=== PATIENT | female | born 1945 | race Caucasian/White ===

== ENCOUNTER 2018-09-07 16:07 | Inpatient (IN) ==
[2018-09-07] MEDS ORDERED: Acetaminophen 325 MG Tablet PO PRN (20:42)
[2018-09-07] MEDS ORDERED: Aluminum/Magnesium/Simethacone Susp 30 ML UDC PO PRN (20:42)
[2018-09-07] MEDS: Senna/Docusate Sodium 8.6/50 MG Tablet PO SCH (23:14)
--- NOTE | 2018-09-08 07:35 | P.PNPSY ---
Subjective Chief Complaint: suicidal ideation Remarks: September 08, 2018 Subjective: Patient well-known to me, having interviewed the patient on 3 prior occasions in consultation. Patient has refused cardiac workup and signed a DNR with the expressed wish that she not have intrusive treatment. Patient shows no evidence of sad affect and easily smiles and laughs about the idea of being transferred to palliative care or to hospice. It is reported that the family intends for the patient to stay at [facility] and are unwilling to accept the patient home. The patient feels she would be a burden to the family has no value since the of her friend. The patient's current treatment unlikely to assist in helping her move through the grieving process and except her value beyond taking care of someone else. It is my hope that the patient could attend group therapy for persons who have unresolved grief due to the loss of the left one. I have proposed to administration that such her group be started in the hospital for the benefit of patients who are unable to be released because of their suicidal intent. Mental Status Examination Appearance: Appropriate Consciousness: Alert Orientation: x4 Speech: Unremarkable Language: Adequate Fund of Knowledge: Adequate Attention and Concentration: Adequate Memory: Unremarkable Mood: Appropriate Affect: Labile Thought Process & Associations: Intact Thought Content: Appropriate Hallucination Type: None Suicidal Ideation: Yes Suicidal Plan: Yes Suicidal Intention: Yes Assessment and Plan - Plan Plan: Estimated LOS: [] days September 08, 2018 Continue the present medications and when possible arrange for group therapy for grief resolution. Justification for Continued Inpatient Stay: September 08, 2017 Patient continues to threaten suicide if released. Family wants patient to remain in the hospital and do not feel they can provide safe environment outside the hospital. They are also said to be unwilling for the patient to be transferred to an [facility].
[2018-09-08] MEDS: Senna/Docusate Sodium 8.6/50 MG Tablet PO SCH ×2 (08:13→20:13)
--- NOTE | 2018-09-08 12:23 | P.HPPSY ---
Provisional Diagnosis Admission Date: September 07, 2018 19:55 [place] I.: Major depressive disorder Competence Certification of Person's Competence To Provide Express and Informed Consent I have personally examined Tammy Betancourt, a person being served at [facility] onSeptember 08, 2018 1220. Express and informed consent means consent voluntarily given in writing, by a competent person, after sufficient explanation and disclosure of the subject matter involved to enable the person to make a knowing and willful decision without any element of force, fraud, deceit, duress, or other form of constraint or coercion. This person is 18 years of age or older, is not now known to be incompetent to consent to treatment with a guardian advocate, and does not have a health care surrogate or proxy currently making medical treatment decisions. I have found this person to be one of the following: [] Competent to provide express and informed consent, as defined above, for voluntary admission to this facility and is competent to provide express and informed consent for treatment. He/she has the consistent capacity to make well reasoned, willful, and knowing decisions concerning his or her medical or mental health treatment. The person fully and consistently understands the purpose of the admission for examination/placement and is fully capable of personally exercising all rights assured under [place] [] Incompetent to provide express and informed consent to voluntary admission, and this is incompetent to provide express and informed consent to treatment. The person must be transferred to involuntary status and a petition for a guardian advocate filed with the Circuit Court. [x] Refusing to provide express and informed consent to voluntary admission but is competent to provide express and informed consent for treatment. The person must be discharged or transferred to involuntary status. Form shall be completed within 24 hours of a person's arrival at the receiving facility and filed in the clinical record of each person: 1. Admitted on a voluntary basis 2. Permitted to provide express and informed consent to his/her own treatment 3. Allowed to transfer from involuntary to voluntary status 4. Prior to permitting a person to consent to his or her own treatment after having been previously found incompetent to consent to treatment. History of Present Illness Capacity: Has capacity History of Present Illness: 08/29/2018 This is a request for a psychiatric consult. Documentation was reviewed, case was discussed with nursing and patient was evaluated. Patient is a 73-year-old female with a history of depressive disorder. She is here after an intentional suicide overdose. Patient admits to her suicide attempt and describes various stressors including not having a home and feeling like she is a financial burden. She has been feeling this way over the past 4 months and decided to plan her attempt before admission. She wrote a note but says that the note was found to soon by her daughter. Patient continues to have suicidal ideation with intent of hurting herself but does not have any plan of doing so. I spoke with the one-to-one she remains closely monitored here. Her mood is depressed her affect is blunted. She is feeling hopeless and helpless. No psychosis elicited. Patient overdosed however per record she had access to a gun.She states that around 6:54 PM on 08/28 she ingested about 20 tablets of Tylenol 650 mg (13 gram) as well as about 3 doses of codeine cough syrup. She injected "about 3 to 4 times her standard dose" of Tresiba ( time to peak 9 hours, half life elimination 25 hours). Tylenol level at 3-4 hours was 207. She was started on Mucomyst in the emergency department. Her glucose is 341. Urine drug screen is positive for opioids. Salicylate and serum EtOH are negative. She states she still feels suicidal. Past psych: Patient denies outpatient psychiatric history. Says that she had 1 other overdose in her life at age 18. He describes a history of multiple depressive episodes and has tried various antidepressants with little efficacy. The last one that she remembers is Lexapro but she does not know when she took it. No history of cutting. Past medical: CHF, COPD, diabetes mellitus, GERD Past Famhx: Denies Past Social: Patient has 3 kids and is . 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 She denies alcohol or drug use. 09/03/2028 Family medicine notes noted and attending nurse and I discussed the discharge planning. I have asked that the attending physician call me for conferencing the patient prior to making any further decisions regarding the psychiatric follow-up. If patient is to be admitted to hospice I believe she would be safe from further suicidal attempts. Her presentation of her suicidal preoccupation has now changed to her stating that she does not have a gun and she has never told anyone she did. There is very clear indication on repeated notes that the patient has indicated she has gone. This seems to be a manifestation of the patient's being angry with her world and unhappy with the circumstances she finds herself and now where she feels that she is useless now that her friend is no longer alive.There is every indication that the patient is angry and that this is based on circumstances rather than actual clinical depression. 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 There is no likely of inpatient psychiatric follow-up being least restrictive or even the most effective means for treatment. It is therefore recommended that the patient a transfer to hospice as has been planned. Once this has been arranged consult for lifting the [place] act will be done.If the patient is still in the hospital on Thursday Dr. Levin will see the patient and give his opinion as to the best disposition, if he does not concur with the plan as it is now recommended. 09/07/2017 Patient seen today for psychiatric reevaluation. Notes from Dr. Snell and Dr. Gomez reviewed. Patient is found calm, superficially cooperative, very sarcastic. Patient reports that she is not happy with failing her plan. She says that she just need more time to figure out how to commit suicide with a better metabolic. Patient says that she has no recent to live for. She reports to be very pessimistic, very hopeless, helpless, and having continued suicidal thinking. The patient is logical, she is coherent, she is relevant. She is fully oriented x3. I spoke with her about starting medication for depression, she agrees with it. - Inpatient Certification I certify that the inpatient services were ordered in accordance with Medicare regulations governing the order. This includes certification that hospital inpatient services are reasonable and necessary and in the case of services not specified as inpatient-only under 42 CFR 419.22(n), that they are appropriately provided as inpatient services in accordance to with the 2-midnight benchmark under 43 CFR 412.3(e) I certify that inpatient psychiatric hospital services are medically necessary. Evaluation and treatment and/or diagnostic testing are expected to improve the patient's condition. The patient needs on a daily basis, active treatment furnished directly by or requiring the supervision of inpatient psychiatric facility personnel. Review of Systems All other systems reviewed negative except as stated in HPI Psychiatric: Reports depression, Reports thoughts of hurting/killing yourself PMFSH - History History Provided By: Patient, Medical Record - Medical History Medical History: Medical History (Last Updated 09/01/18 @ 17:15 by Sue Shin APRN) CAD (coronary artery disease) COPD (chronic obstructive pulmonary disease) Carpal tunnel syndrome on both sides Depression Diabetes Hypertension On home oxygen therapy - Surgical History Surgical History: Surgical History (Last Reviewed 08/29/18 @ 14:31 by Rickey Gomez DO) History of carpal tunnel release of both wrists Hx of CABG Hx of appendectomy Hx of tubal ligation S/P trigger finger release - Family History Family History: Family History (Last Updated 08/29/18 @ 09:24 by Genet Marrero MD) Father Myocardial infarction acute Mother Diabetes - Tobacco History Second Hand Smoke Exposure: Yes Tobacco Use In Past 30 Days: Yes Smoking Status: Current every day smoker Tobacco Type: Cigarettes Packs Per Day: 1 - Alcohol History How Often Do You Have a Drink Containing Alcohol: Never - Substance Use History Substance History: No History of Abuse, Unable to Obtain - Immunization History Tetanus Immunization: Unable to Assess Hx Influenza Vaccine This Season: Yes Medications and Allergies Active Medications: Active Medications Al Hydrox/Mg Hydrox/Simethicone (Mag-Al Plus Susp Liq) 30 ml PO Q6H PRN PRN Reason: DYSPEPSIA Al Hydroxide/Mg Hydroxide (Milk Of Magnesia Liq) 30 ml PO Q12H PRN PRN Reason: Mild Constipation Diphenhydramine HCl (Benadryl) 50 mg PO Q6H PRN PRN Reason: For mild anxiety and/or EPS Diphenhydramine HCl (Benadryl Inj) 50 mg IM Q6H PRN PRN Reason: For mild anxiety and/or EPS Hydroxyzine HCl (Atarax) 50 mg PO Q6H PRN PRN Reason: ANXIETY Nicotine (Habitrol 21 Mg Patch.24 Hr) 1 patch T-DERMAL DAILY [facility] Last Admin: 09/08/18 08:13 Dose: Not Given Patch Removal (Remove Old Patch) 1 each T-DERMAL HS [facility] Senna/Docusate Sodium (Leda-Colace) 1 tab PO BID [facility] Last Admin: 09/08/18 08:13 Dose: Not Given Allergies Allergy/AdvReac Type Severity Reaction Status Date / Time No Known Allergies Uncoded 06/28/09 06:13 Home Medications Medication Instructions Recorded Confirmed Type atorvastatin 40 mg PO DAILY 08/29/18 08/29/18 History carvedilol 25 mg PO BID 08/29/18 08/29/18 History clopidogrel [Plavix] 75 mg PO DAILY 08/29/18 08/29/18 History diltiazem HCl 90 mg PO Q12H 08/29/18 08/29/18 History ergocalciferol (vitamin D2) 50,000 unit PO QWEEK 08/29/18 08/29/18 History [Drisdol] escitalopram oxalate [Lexapro] 10 mg PO DAILY 08/29/18 08/29/18 History fluticasone-salmeterol [Advair 1 puff INHALATION BID 08/29/18 08/29/18 History Diskus] furosemide 40 mg PO DAILY 08/29/18 08/29/18 History insulin glargine [Lantus Solostar 20 unit SUBCUT DAILY 08/29/18 08/29/18 History U-100 Insulin] insulin lispro [Humalog U-100 See Label Instructions .ROUTE 08/29/18 08/29/18 History Insulin] .COMPLEX liraglutide [Victoza 2-Max] 0.6 mg SUBCUT DAILY 08/29/18 08/29/18 History montelukast [Singulair] 10 mg PO QPM 08/29/18 08/29/18 History prednisone [Deltasone] 20 mg PO BID 08/29/18 08/29/18 History rabeprazole 20 mg PO DAILY 08/29/18 08/29/18 History Results - Labs Labs: Laboratory Results - last 24 hr 09/08/18 09/08/18 05:58 11:22 POC Glucose 176 H 240 H Exam Vital signs: Vital Signs 09/07/18 19:35 09/08/18 05:27 Temperature 98.1 F 98.1 F Pulse Rate 65 66 Respiratory Rate 18 18 Blood Pressure 141/65 H 121/56 L Pulse Oximetry 93 L 93 L Intake & Output 09/07/18 09/08/18 09/08/18 18:59 06:59 18:59 Intake Total 480 / 480 Balance 480 / 480 Weight 85.6 kg Intake: Oral 480 / 480 Other: Date of Last Bowel Movement 09/06/18 Weight On Admission 85.6 kg Narrative: No tremors, no EPS, no psychomotor agitation or retardation, no catatonia, no gait disturbance - Constitutional no acute distress, mild distress - Routine HEENT Exam Head: Present: normocephalic, atraumatic Eye: Present: EOMI, PERRL ENT: Present: mucous membranes moist Mental Status Examination Appearance: Appropriate Consciousness: Alert Orientation: x4 Speech: Unremarkable Language: Adequate Fund of Knowledge: Adequate Attention and Concentration: Adequate Memory: Unremarkable Mood: Appropriate Affect: Labile Thought Process & Associations: Intact Thought Content: Appropriate Hallucination Type: None Suicidal Ideation: Yes Suicidal Plan: Yes Suicidal Intention: Yes Assessment and Plan - Assessment (1) Major depressive disorder, recurrent severe without psychotic features Code(s): F33.2 - Major depressive disorder, recurrent severe without psychotic features Status: Acute - Plan Plan: On psychiatric reevaluation today the patient continues to be actively suicidal , with clear symptoms of depression. Patient needs psychiatric admission for stabilization. I will start Effexor 25 mg daily for depression. Transfer to [facility]. I have discussed with Dr. Andujar the recommendations and she agrees with the plan. bin worker intervention for psychosocial assessment, individual and group therapies, collateral information and to coordinate safe discharge. Justification for Continued Inpatient Stay: Continue admission in psychiatry
--- NOTE | 2018-09-08 14:09 | P.CON ---
History of Present Illness Service: [facility] Consult date: 09/08/18 Requesting Physician: Gio Marte Reason for Consult: Medical Management Primary Care Provider: UNKNOWN Chief Complaint: depression History of Present Illness: 73-year-old female with history of DM, COPD on home O2 2L NC prn, HTN, CHF, CAD s/p four-vessel CABG, GERD, admitted to inpatient psychiatry with depression and suicidal ideations. Hospitalist consulted for medical management. The patient is seen in the day room, watching a movie. She has no medical complaints including no fever/chills, headache, lightheadedness, chest pain, palpitations, shortness of breath, abdominal, or urinary complaints. Vital signs reviewed and stable. RN to verify and update home med list to restart medications. No other concerns reported. Review of Systems All other systems reviewed negative except as stated in HPI [facility] - History History Provided By: Patient, Medical Record - Medical History Medical History: Medical History (Last Updated 09/08/18 @ 16:09 by Arianne Marie) Thyroid disease CAD (coronary artery disease) COPD (chronic obstructive pulmonary disease) Carpal tunnel syndrome on both sides Depression Diabetes Hypertension On home oxygen therapy - Surgical History Surgical History: Surgical History (Last Reviewed 09/08/18 @ 16:09 by Arianne Marie) History of carpal tunnel release of both wrists Hx of CABG Hx of appendectomy Hx of tubal ligation S/P trigger finger release - Family History Family History: Family History (Last Updated 09/08/18 @ 16:09 by Arianne Marie) Father Myocardial infarction acute CAD (coronary artery disease) Mother Diabetes - Social History I have reviewed the patient's Social History: Yes - Tobacco History Second Hand Smoke Exposure: Yes Tobacco Use In Past 30 Days: Yes Smoking Status: Current every day smoker Tobacco Type: Cigarettes Packs Per Day: 0.5 - Alcohol History How Often Do You Have a Drink Containing Alcohol: Monthly or less - Substance Use History Substance History: No History of Abuse, Unable to Obtain - Substance Use Type Other Type: tobacco Status: Active Route Used: By Mouth Frequency: 1ppd Reason for Use: Calm Down Comment: Patient denies any other drugs - Immunization History Tetanus Immunization: Unable to Assess Hx Influenza Vaccine This Season: Yes Medications and Allergies Active Medications: Active Medications Al Hydrox/Mg Hydrox/Simethicone (Mag-Al Plus Susp Liq) 30 ml PO Q6H PRN PRN Reason: DYSPEPSIA Al Hydroxide/Mg Hydroxide (Milk Of [place]) 30 ml PO Q12H PRN PRN Reason: Mild Constipation Diphenhydramine HCl (Benadryl) 50 mg PO Q6H PRN PRN Reason: For mild anxiety and/or EPS Diphenhydramine HCl (Benadryl Inj) 50 mg IM Q6H PRN PRN Reason: For mild anxiety and/or EPS Hydroxyzine HCl (Atarax) 50 mg PO Q6H PRN PRN Reason: ANXIETY Nicotine (Habitrol 21 Mg Patch.24 Hr) 1 patch T-DERMAL DAILY [facility] Last Admin: 09/08/18 08:13 Dose: Not Given Patch Removal (Remove Old Patch) 1 each T-DERMAL HS [facility] Senna/Docusate Sodium (Leda-Colace) 1 tab PO BID [facility] Last Admin: 09/08/18 08:13 Dose: Not Given Allergies Allergy/AdvReac Type Severity Reaction Status Date / Time No Known Allergies Uncoded 06/28/09 06:13 Home Medications Medication Instructions Recorded Confirmed Type atorvastatin 40 mg PO DAILY 08/29/18 08/29/18 History carvedilol 25 mg PO BID 08/29/18 08/29/18 History clopidogrel [Plavix] 75 mg PO DAILY 08/29/18 08/29/18 History diltiazem HCl 90 mg PO Q12H 08/29/18 08/29/18 History ergocalciferol (vitamin D2) 50,000 unit PO QWEEK 08/29/18 08/29/18 History [Drisdol] escitalopram oxalate [Lexapro] 10 mg PO DAILY 08/29/18 08/29/18 History fluticasone-salmeterol [Advair 1 puff INHALATION BID 08/29/18 08/29/18 History Diskus] furosemide 40 mg PO DAILY 08/29/18 08/29/18 History insulin glargine [Lantus Solostar 20 unit SUBCUT DAILY 08/29/18 08/29/18 History U-100 Insulin] insulin lispro [Humalog U-100 See Label Instructions .ROUTE 08/29/18 08/29/18 History Insulin] .COMPLEX liraglutide [Victoza 2-Max] 0.6 mg SUBCUT DAILY 08/29/18 08/29/18 History montelukast [Singulair] 10 mg PO QPM 08/29/18 08/29/18 History prednisone [Deltasone] 20 mg PO BID 08/29/18 08/29/18 History rabeprazole 20 mg PO DAILY 08/29/18 08/29/18 History Physical Exam Vital signs: Vital Signs 09/07/18 19:35 09/08/18 05:27 Temperature 98.1 F 98.1 F Pulse Rate 65 66 Respiratory Rate 18 18 Blood Pressure 141/65 H 121/56 L Pulse Oximetry 93 L 93 L Intake & Output 09/07/18 09/08/18 09/08/18 18:59 06:59 18:59 Intake Total 580 / 580 Balance 580 / 580 Weight 85.6 kg Intake: Oral 580 / 580 Other: Date of Last Bowel Movement 09/06/18 Weight On Admission 85.6 kg Narrative: GENERAL: Well-nourished, well-developed pleasant elderly female patient in [facility]. SKIN: Warm and dry. No rash. HEENT: Normocephalic. Atraumatic. Pupils equal and round. Mucous membranes pink and moist. CARDIOVASCULAR: Regular rate and rhythm. No murmur appreciated. RESPIRATORY: No accessory muscle use. Clear to auscultation. Breath sounds equal bilaterally. GASTROINTESTINAL: Abdomen soft, non-tender, nondistended. Normoactive bowel sounds x4. MUSCULOSKELETAL: No obvious deformities. Extremities without clubbing, cyanosis , or edema. NEUROLOGICAL: Awake and alert. No obvious cranial nerve deficits. Moving all extremities spontaneously. Normal speech. PSYCHIATRIC: insight and judgment normal. Results - Labs Labs: Laboratory Results - last 24 hr 09/08/18 09/08/18 05:58 11:22 POC Glucose 176 H 240 H Assessment and Plan - Plan 73-year-old female with history of DM, COPD on home O2 2L NC prn, HTN, CHF, CAD s/p four-vessel CABG, GERD, admitted to inpatient psychiatry with depression and suicidal ideations. Depression, suicidal ideations: Acute -Continue management per psychiatry Diabetes mellitus: Chronic -Monitor Accu-Cheks and cover with SSI -RN to verify and update home med list, will start long-acting insulin once verified -Diabetic diet HTN/CAD/CHF: Chronic, stable, no complaints of chest pain or shortness of breath -Continue patient's home med once verified by RN, including aspirin, Plavix, Coreg, statin, Lasix -Monitor BP, adjust antihypertensives as needed GERD: Chronic -continue PPI COPD: Chronic, stable, does not appear to be in exacerbatin -continue patient's Singulair -albuterol inhaler prn -on home O2 prn, however O2 sats have been stable, will monitor for now DVT Prophylaxis: on aspirin/plavix, patient is ambulatory
[2018-09-08] MEDS ORDERED: Dextrose 50% in Water 50 ML Vial IV.PUSH PRN (16:05)
[2018-09-08] MEDS: Insulin NovoLOG Aspart Correctional Sugar Inj SQ SCH ×2 (17:42→20:13)
[2018-09-08] MEDS: Carvedilol 12.5 MG Tablet PO SCH (20:12)
[2018-09-09] MEDS: Montelukast 10 MG Tablet PO SCH ×2 (06:24→20:49)
[2018-09-09 07:10] LABS: Baso # (Auto) 0.1 th/mm3 (0.0-0.2); Baso % (Auto) 0.8 % (0.0-2.0); Eos # (Auto) 0.3 th/mm3 (0.0-0.4); Eos % (Auto) 3.6 % (0.0-4.0); Hemoglobin 10.9 gm/dL (11.6-15.3); Lymph # (Auto) 2.2 th/mm3 (1.0-4.8); Lymph % (Auto) 26.9 % (9.0-44.0); Mean Corpuscular HGB Conc 32.9 % (32.0-36.0); Mean Corpuscular Hemoglobin 26.8 pg (27.0-34.0); Mean Corpuscular Volume 81.2 fL (80.0-100.0); Mean Platelet Volume 8.2 fL (7.0-11.0); Mono # (Auto) 0.8 th/mm3 (0.0-0.9); Mono % (Auto) 10.3 % (0.0-8.0); Neut # (Auto) 4.7 th/mm3 (1.8-7.7); Neut % (Auto) 58.4 % (16.0-70.0); Platelet Count 346 th/mm3 (150-450); Red Blood Count 4.06 mil/mm3 (4.00-5.30); Red Cell Distribution Width 16.1 % (11.6-17.2); White Blood Count 8.1 th/mm3 (4.0-11.0)
[2018-09-09] MEDS: Insulin NovoLOG Aspart Correctional Sugar Inj SQ SCH ×4 (07:29→20:48)
[2018-09-09 07:39] LABS: Albumin 2.5 g/dL (3.4-5.0); Anion Gap 7 meq/L (5-15); Aspartate Aminotransferase 8 U/L (15-37); Blood Urea Nitrogen 29 mg/dL (7-18); Calcium 9.1 mg/dL (8.5-10.1); Carbon Dioxide 30.2 meq/L (21.0-32.0); Chloride 104 meq/L (98-107); Glomerular Filtration Rate 51 mL/min (>89); Glucose,Random 215 mg/dL (74-106); Sodium 141 meq/L (136-145)
[2018-09-09 07:41] LABS: Alanine Aminotransferase 11 U/L (10-53); Alkaline Phosphatase 64 U/L (45-117); Total Protein 6.2 g/dL (6.4-8.2)
[2018-09-09] MEDS: Carvedilol 12.5 MG Tablet PO SCH ×2 (08:53→20:48)
[2018-09-09] MEDS: Senna/Docusate Sodium 8.6/50 MG Tablet PO SCH ×2 (08:54→20:49)
[2018-09-09] MEDS: Furosemide 40 MG Tablet PO SCH (08:54)
[2018-09-09] MEDS: Insulin Detemir Inj 1,000 UNIT/10 ML Vial SQ SCH (09:15)
--- NOTE | 2018-09-09 12:48 | P.PNPSY ---
Subjective Chief Complaint: suicidal ideation Remarks: September 09, 2018 Subjective: Patient seen in the day room having breakfast eating pancakes with heavy dose of syrup. Been running elevated blood sugar levels. It is unclear whether patient's diet is not being observed. Discussed patient with staff nurse and reviewed the record. Hospitalist is following the patient for her diabetes. Patient remains sarcastic commenting that he does not care her blood sugars since she wants to . Review of Systems September 09, 2018 Patient denies any changes in previous review of systems. Mental Status Examination Appearance: Appropriate (No changes in the patient's behavior. She shows no signs of clinical depression) Consciousness: Alert Orientation: x4 Speech: Unremarkable Language: Adequate Fund of Knowledge: Adequate Attention and Concentration: Adequate Memory: Unremarkable Mood: Appropriate Affect: Labile Thought Process & Associations: Intact Thought Content: Appropriate Hallucination Type: None Suicidal Ideation: Yes Suicidal Plan: Yes Suicidal Intention: Yes Assessment and Plan - Assessment (1) Major depressive disorder, recurrent severe without psychotic features Code(s): F33.2 - Major depressive disorder, recurrent severe without psychotic features Status: Acute - Plan Plan: On psychiatric reevaluation today the patient continues to be actively suicidal , with clear symptoms of depression. Patient needs psychiatric admission for stabilization. I will start Effexor 25 mg daily for depression. Transfer to 2500. I have discussed with Dr. Andujar the recommendations and she agrees with the plan. child daycare worker intervention for psychosocial assessment, individual and group therapies, collateral information and to coordinate safe discharge. Justification for Continued Inpatient Stay: September 09, 2018 Patient continues to express suicidal ideation and makes sarcastic comments regarding her interest in following her diet. Patient is comfortable and this placement and has little or no intention of benefiting from this hospitalization without some significant change in her being able to grieve the loss of her feelings of relevance. Patient has indicated that she lied regarding having a gun and other statements that she made on admission.
--- NOTE | 2018-09-09 13:47 | P.PN ---
Subjective Interval history: Follow up for DM, HTN, CAD, CHF, COPD. The patient is seen in the day room eating lunch. She denies any medical complaints. Vital signs reviewed and stable. Awaiting [facility] to be updated. Physical Exam Vital signs: Vital Signs 09/08/18 18:03 09/09/18 05:44 09/09/18 08:48 Temperature 98.1 F 97.8 F Pulse Rate 78 63 66 Respiratory Rate 17 16 Blood Pressure 106/61 117/56 L 134/66 Pulse Oximetry 94 L 94 L Intake & Output 09/08/18 09/09/18 09/09/18 18:59 06:59 18:59 Intake Total 580 / 580 0 / 0 720 / 720 Balance 580 / 580 0 / 0 720 / 720 Weight 56.245 kg Intake: Oral 580 / 580 0 / 0 720 / 720 Narrative: GENERAL: Well-nourished, well-developed pleasant elderly female patient in [facility]. SKIN: Warm and dry. No rash. HEENT: Normocephalic. Atraumatic. Pupils equal and round. Mucous membranes pink and moist. CARDIOVASCULAR: Regular rate and rhythm. No murmur appreciated. RESPIRATORY: No accessory muscle use. Clear to auscultation. Breath sounds equal bilaterally. GASTROINTESTINAL: Abdomen soft, non-tender, nondistended. Normoactive bowel sounds x4. MUSCULOSKELETAL: No obvious deformities. Extremities without clubbing, cyanosis , or edema. NEUROLOGICAL: Awake and alert. No obvious cranial nerve deficits. Moving all extremities spontaneously. Normal speech. PSYCHIATRIC: insight and judgment normal. Results - Labs CBC & Chem 7: 09/09/18 06:40 09/09/18 06:40 Laboratory Results - last 24 hr 09/08/18 09/09/18 09/09/18 17:04 06:40 06:40 WBC 8.1 RBC 4.06 Hgb 10.9 L Hct 33.0 L MCV 81.2 MCH 26.8 L MCHC 32.9 RDW 16.1 Plt Count 346 MPV 8.2 Neut % (Auto) 58.4 Lymph % (Auto) 26.9 [place] % (Auto) 10.3 H Eos % (Auto) 3.6 Baso % (Auto) 0.8 Neut # (Auto) 4.7 Lymph # (Auto) 2.2 [place] # (Auto) 0.8 Eos # (Auto) 0.3 Baso # (Auto) 0.1 WBC Differential . Differential Comment Auto diff final Sodium 141 Potassium 4.0 Chloride 104 Carbon Dioxide 30.2 Anion Gap 7 BUN 29 H Creatinine 1.06 H Estimated GFR 51 L POC Glucose 204 H Random Glucose 215 H Calcium 9.1 Total Bilirubin 0.2 AST 8 L ALT 11 Alkaline Phosphatase 64 Total Protein 6.2 L Albumin 2.5 L Assessment and Plan - Plan 73-year-old female with history of DM, COPD on home O2 2L NC prn, HTN, CHF, CAD s/p four-vessel CABG, GERD, admitted to inpatient psychiatry with depression and suicidal ideations. Depression, suicidal ideations: Acute -Continue management per psychiatry Diabetes mellitus: Chronic -Monitor Accu-Cheks and cover with SSI -RN to verify and update home med list, will start long-acting insulin once verified -Diabetic diet HTN/CAD/CHF: Chronic, stable, no complaints of chest pain or shortness of breath -Continue patient's home med once verified by RN, including aspirin, Plavix, Coreg, statin, Lasix -Monitor BP, adjust antihypertensives as needed GERD: Chronic -continue PPI COPD: Chronic, stable, does not appear to be in exacerbation -continue patient's Singulair -albuterol inhaler prn -on home O2 prn, however O2 sats have been stable, will monitor for now DVT Prophylaxis: on aspirin/plavix, patient is ambulatory
[2018-09-10] MEDS: Insulin NovoLOG Aspart Correctional Sugar Inj SQ SCH ×4 (08:13→21:25)
[2018-09-10] MEDS: Insulin Detemir Inj 1,000 UNIT/10 ML Vial SQ SCH (08:31)
[2018-09-10] MEDS: Senna/Docusate Sodium 8.6/50 MG Tablet PO SCH ×2 (08:31→21:25)
[2018-09-10] MEDS: Furosemide 40 MG Tablet PO SCH (08:31)
[2018-09-10] MEDS: Carvedilol 12.5 MG Tablet PO SCH ×2 (08:32→21:25)
--- NOTE | 2018-09-10 08:41 | P.PNPSY ---
Subjective Chief Complaint: suicidal ideation Remarks: September 10, 2018 Subjective: The patient denies any symptoms of clinical depression but can become tearful in discussing her feelings of loss of relevance and she no longer is able to take care of someone else. The patient is agreeable to transfer to a half-way, but concern about whether or not she could afford it. Placement should not be difficult and patient seems prepared to commit to a safety contract, is likely to be reluctant to give up or commit unless she feels her situation will be improved. Review of Systems September 10, 2018 Patient seen by medical malpractice paralegal and there appeared to be no new complaints. My interview with the patient fails to reveal new complaints in the review of systems. Mental Status Examination Appearance: Appropriate (No changes in the patient's behavior. She shows no signs of clinical depression) Consciousness: Alert Orientation: x4 Speech: Unremarkable Language: Adequate Fund of Knowledge: Adequate Attention and Concentration: Adequate Memory: Unremarkable Mood: Appropriate Affect: Labile Thought Process & Associations: Intact Thought Content: Appropriate Hallucination Type: None Suicidal Ideation: Yes Suicidal Plan: Yes Suicidal Intention: Yes Assessment and Plan - Assessment (1) Major depressive disorder, recurrent severe without psychotic features Code(s): F33.2 - Major depressive disorder, recurrent severe without psychotic features Status: Acute - Plan Plan: On psychiatric reevaluation today the patient continues to be actively suicidal , with clear symptoms of depression. Patient needs psychiatric admission for stabilization. I will start Effexor 25 mg daily for depression. Transfer to 2500. I have discussed with Dr. Andujar the recommendations and she agrees with the plan. 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 September 10, 2018 patient does not appear to be clinically depressed and unlikely to benefit from antidepressant medication. It is unlikely antidepressant medication will benefit 73-year-old patient be on the placebo effect. Justification for Continued Inpatient Stay: September 10, 2018 Patient agrees as does her daughter to placement in a half-way. Discharge planning is underway and patient may be discharged when a bed is available.
--- NOTE | 2018-09-10 13:27 | P.PN ---
Subjective Interval history: Follow up for DM, HTN, CAD, CHF, COPD. The patient is seen resting in bed. She has no medical complaints. Denies any fever/chills, chest pain, shortness of breath, or abdominal complaints. Physical Exam Vital signs: Vital Signs 09/09/18 17:36 09/10/18 06:00 Temperature 97.5 F L 98 F Pulse Rate 76 66 Respiratory Rate 19 18 Blood Pressure 112/54 L 120/56 L Pulse Oximetry 95 96 Intake & Output 09/09/18 09/10/18 09/10/18 18:59 06:59 18:59 Intake Total 2640 / 2640 580 / 580 Balance 2640 / 2640 580 / 580 Weight 56.245 kg Intake: Oral 2640 / 2640 480 / 480 Oral Supplement 100 / 100 Other: # Voids 3 Date of Last Bowel Movement 09/09/18 09/09/18 # Bowel Movements 2 Narrative: GENERAL: Well-nourished, well-developed pleasant elderly female patient in [facility]. SKIN: Warm and dry. No rash. HEENT: Normocephalic. Atraumatic. Pupils equal and round. Mucous membranes pink and moist. CARDIOVASCULAR: Regular rate and rhythm. No murmur appreciated. RESPIRATORY: No accessory muscle use. Clear to auscultation. Breath sounds equal bilaterally. GASTROINTESTINAL: Abdomen soft, non-tender, nondistended. Normoactive bowel sounds x4. MUSCULOSKELETAL: No obvious deformities. Extremities without clubbing, cyanosis , or edema. NEUROLOGICAL: Awake and alert. No obvious cranial nerve deficits. Moving all extremities spontaneously. Normal speech. PSYCHIATRIC: insight and judgment normal. Results - Labs CBC & Chem 7: 09/09/18 06:40 09/09/18 06:40 Assessment and Plan - Plan 73-year-old female with history of DM, COPD on home O2 2L NC prn, HTN, CHF, CAD s/p four-vessel CABG, GERD, admitted to inpatient psychiatry with depression and suicidal ideations. Depression, suicidal ideations: Acute -Continue management per psychiatry Diabetes mellitus: Chronic -Monitor Accu-Cheks and cover with SSI -RN to verify and update home med list -Patient reports she takes Tresiba at home, but has been on Lantus/Levemir in the past -Started on levemir 10u sq daily while in the hospital -Diabetic diet HTN/CAD/CHF: Chronic, stable, no complaints of chest pain or shortness of breath -Continue patient's home med once verified by RN, including aspirin, Plavix, Coreg, statin, Lasix -Monitor BP, adjust antihypertensives as needed GERD: Chronic -continue PPI COPD: Chronic, stable, does not appear to be in exacerbation -continue patient's Singulair -albuterol inhaler prn -on home O2 prn, however O2 sats have been stable on room air, will monitor for now DVT Prophylaxis: on aspirin/plavix, patient is ambulatory
[2018-09-10] MEDS: Montelukast 10 MG Tablet PO SCH (21:26)
[2018-09-11] MEDS: Insulin NovoLOG Aspart Correctional Sugar Inj SQ SCH ×4 (08:12→21:09)
[2018-09-11] MEDS: Insulin Detemir Inj 1,000 UNIT/10 ML Vial SQ SCH (08:12)
[2018-09-11] MEDS: Carvedilol 12.5 MG Tablet PO SCH ×2 (08:16→20:12)
[2018-09-11] MEDS: Furosemide 40 MG Tablet PO SCH (08:16)
[2018-09-11] MEDS: Senna/Docusate Sodium 8.6/50 MG Tablet PO SCH ×2 (08:17→20:12)
--- NOTE | 2018-09-11 11:49 | P.PN ---
Subjective Interval history: Follow up for DM, HTN, COPD. Patient seen in the day room visiting with family. She has no medical complaints. Blood sugar slightly elevated at 200, discussed increasing Levemir, patient agrees. Denies any fever/chills, headache , lightheadedness, chest pain, palpitations, or shortness of breath. Tolerating oral intake. Physical Exam Vital signs: Vital Signs 09/10/18 17:51 09/11/18 06:13 09/11/18 09:37 Temperature 97.9 F 97.7 F Pulse Rate 73 69 73 Respiratory Rate 16 16 Blood Pressure 110/57 L 102/53 L 113/57 L Pulse Oximetry 95 95 Intake & Output 09/10/18 09/11/18 09/11/18 18:59 06:59 18:59 Intake Total 740 / 740 580 / 580 Balance 740 / 740 580 / 580 Intake: Oral 740 / 740 480 / 480 Oral Supplement 100 / 100 Other: # Voids 4 2 Date of Last Bowel Movement 09/09/18 09/10/17 # Bowel Movements 1 Narrative: GENERAL: Well-nourished, well-developed pleasant elderly female patient in [facility]. SKIN: Warm and dry. No rash. HEENT: Normocephalic. Atraumatic. Pupils equal and round. Mucous membranes pink and moist. CARDIOVASCULAR: Regular rate and rhythm. No murmur appreciated. RESPIRATORY: No accessory muscle use. Clear to auscultation. Breath sounds equal bilaterally. GASTROINTESTINAL: Abdomen soft, non-tender, nondistended. Normoactive bowel sounds x4. MUSCULOSKELETAL: No obvious deformities. Extremities without clubbing, cyanosis , or edema. NEUROLOGICAL: Awake and alert. No obvious cranial nerve deficits. Moving all extremities spontaneously. Normal speech. PSYCHIATRIC: insight and judgment normal. Results - Labs CBC & Chem 7: 09/09/18 06:40 09/09/18 06:40 Laboratory Results - last 24 hr 09/10/18 09/11/18 09/11/18 19:58 07:41 11:20 POC Glucose 237 H 205 H 303 H Assessment and Plan - Plan 73-year-old female with history of DM, COPD on home O2 2L NC prn, HTN, CHF, CAD s/p four-vessel CABG, GERD, admitted to inpatient psychiatry with depression and suicidal ideations. Depression, suicidal ideations: Acute -Continue management per psychiatry Diabetes mellitus: Chronic -Monitor Accu-Cheks and cover with SSI -Patient reports she takes Tresiba at home, but has been on Lantus/Levemir in the past -Started on levemir 10u sq daily while in the hospital, increased to 12u on -Diabetic diet HTN/CAD/CHF: Chronic, stable, no complaints of chest pain or shortness of breath -Continue patient's home meds including aspirin, Plavix, Coreg, statin, Lasix -Monitor BP, adjust antihypertensives as needed GERD: Chronic -continue PPI COPD: Chronic, stable, does not appear to be in exacerbation -continue patient's Singulair -albuterol inhaler prn -on home O2 prn, however O2 sats have been stable on room air, will monitor for now DVT Prophylaxis: on aspirin/plavix, patient is ambulatory
--- NOTE | 2018-09-11 15:24 | P.PNPSY ---
Subjective Chief Complaint: suicidal ideation Remarks: Patient was seen and case was discussed with nursing. Patient is pleasant and cooperative with exam. She is somewhat sarcastic during the interview giving 1 word vague answers concerning suicidal ideation and the events with her admission. She is compliant with her medications and behaving well on the unit. Review of Systems All other systems reviewed negative except as stated in HPI Mental Status Examination Appearance: Appropriate (No changes in the patient's behavior. She shows no signs of clinical depression) Consciousness: Alert Orientation: x4 Speech: Unremarkable Language: Adequate Fund of Knowledge: Adequate Attention and Concentration: Adequate Memory: Unremarkable Mood: Appropriate Affect: Labile Thought Process & Associations: Intact Thought Content: Appropriate Hallucination Type: None Suicidal Ideation: Yes (Denies but cannot contract and is a poor historian) Suicidal Plan: No Suicidal Intention: No Assessment and Plan - Assessment (1) Major depressive disorder, recurrent severe without psychotic features Code(s): F33.2 - Major depressive disorder, recurrent severe without psychotic features Status: Acute - Plan Plan: Continue current treatment plan Justification for Continued Inpatient Stay: Patient would decompensate in a less restrictive setting
[2018-09-11] MEDS: Montelukast 10 MG Tablet PO SCH (20:12)
[2018-09-12] MEDS: Insulin NovoLOG Aspart Correctional Sugar Inj SQ SCH ×4 (08:44→21:33)
[2018-09-12] MEDS: Senna/Docusate Sodium 8.6/50 MG Tablet PO SCH ×2 (08:44→20:18)
[2018-09-12] MEDS: Furosemide 40 MG Tablet PO SCH (08:44)
[2018-09-12] MEDS: Insulin Detemir Inj 1,000 UNIT/10 ML Vial SQ SCH (08:44)
[2018-09-12] MEDS: Carvedilol 12.5 MG Tablet PO SCH ×2 (08:44→20:17)
--- NOTE | 2018-09-12 10:01 | P.PN ---
Subjective Interval history: Follow up for DM, HTN, COPD. Patient is seen resting in bed. She denies any medical complaints. Denies any cough or shortness of breath. Blood sugars are better controlled today. She is tolerating oral intake. She has no other medical complaints at this time. Physical Exam Vital signs: Vital Signs 09/11/18 16:24 09/11/18 20:14 09/11/18 21:00 Temperature 97.6 F 98.2 F 98.2 F Pulse Rate 69 75 75 Respiratory Rate 18 18 Blood Pressure 118/60 107/52 L 107/52 L Pulse Oximetry 96 95 95 09/12/18 06:00 Temperature 97.9 F Pulse Rate 88 Respiratory Rate 17 Blood Pressure 106/57 L Pulse Oximetry 97 Intake & Output 09/11/18 09/12/18 09/12/18 18:59 06:59 18:59 Intake Total 1919 Balance 1919 Intake: Oral 1919 Other: # Voids 4 Date of Last Bowel Movement 09/10/17 Narrative: GENERAL: Well-nourished, well-developed pleasant elderly female patient in [facility]. SKIN: Warm and dry. No rash. HEENT: Normocephalic. Atraumatic. Pupils equal and round. Mucous membranes pink and moist. CARDIOVASCULAR: Regular rate and rhythm. No murmur appreciated. RESPIRATORY: No accessory muscle use. Clear to auscultation. Breath sounds equal bilaterally. GASTROINTESTINAL: Abdomen soft, non-tender, nondistended. Normoactive bowel sounds x4. MUSCULOSKELETAL: No obvious deformities. Extremities without clubbing, cyanosis , or edema. NEUROLOGICAL: Awake and alert. No obvious cranial nerve deficits. Moving all extremities spontaneously. Normal speech. PSYCHIATRIC: insight and judgment normal. Results - Labs CBC & Chem 7: 09/09/18 06:40 09/09/18 06:40 Laboratory Results - last 24 hr 09/11/18 09/11/18 09/11/18 11:20 16:21 19:56 POC Glucose 303 H 111 H 156 H 09/11/18 09/12/18 22:51 07:15 POC Glucose 242 H 164 H Assessment and Plan - Plan 73-year-old female with history of DM, COPD on home O2 2L [place] prn, HTN, CHF, CAD s/p four-vessel CABG, GERD, admitted to inpatient psychiatry with depression and suicidal ideations. Depression, suicidal ideations: Acute -Continue management per psychiatry Diabetes mellitus: Chronic -Monitor Accu-Cheks and cover with SSI -Patient reports she takes Tresiba at home, but has been on Lantus/Levemir in the past -Started on levemir 10u sq daily while in the hospital, increased to 12u on -Diabetic diet -Blood sugars improved, when patient is discharged, she can return to taking her Tresiba at home, however will keep on Levemir while in the hospital HTN/CAD/CHF: Chronic, stable, no complaints of chest pain or shortness of breath -Continue patient's home meds including aspirin, Plavix, Coreg, statin, Lasix -Monitor BP, adjust antihypertensives as needed -BP stable GERD: Chronic -continue PPI COPD: Chronic, stable, does not appear to be in exacerbation -continue patient's Singulair -albuterol inhaler prn -on home O2 prn, however O2 sats have been stable on room air, will monitor for now DVT Prophylaxis: on aspirin/plavix, patient is ambulatory Discharge Planning: The patient is medically stable at this time. Hospitalists will sign off. Please reconsult hospitalist as needed or if any new issues arise. Thank you very much for this consultation.
--- NOTE | 2018-09-12 13:15 | P.PNPSY ---
Subjective Chief Complaint: suicidal ideation Remarks: Reviewed electronic medical records and discussed case with staff. Follow-up was conducted in the day room with RADHA Levi present. Patient states "I am just fine". States she has had difficulty sleeping and does not care for our food. However she claims that her mood has been "fine". She is denying suicidal ideation at this time but seems very superficial. Mental Status Examination Appearance: Appropriate (No changes in the patient's behavior. She shows no signs of clinical depression) Consciousness: Alert Orientation: x4 Speech: Unremarkable Language: Adequate Fund of Knowledge: Adequate Attention and Concentration: Adequate Memory: Unremarkable Mood: Appropriate Affect: Labile Thought Process & Associations: Intact Thought Content: Appropriate Hallucination Type: None Suicidal Ideation: Yes (Denies but cannot contract and is a poor historian) Suicidal Plan: No Suicidal Intention: No Assessment and Plan - Assessment (1) Major depressive disorder, recurrent severe without psychotic features Code(s): F33.2 - Major depressive disorder, recurrent severe without psychotic features Status: Acute - Plan Plan: Patient will be reevaluated by the attending psychiatrist. Continue with current treatment plan. Justification for Continued Inpatient Stay: Moving this patient to a less restrictive environment would likely result in decompensation.
[2018-09-12] MEDS: Montelukast 10 MG Tablet PO SCH (20:17)
[2018-09-13 06:04] VITALS: RESP 18
[2018-09-13] MEDS: Furosemide 40 MG Tablet PO SCH (08:12)
[2018-09-13] MEDS: Carvedilol 12.5 MG Tablet PO SCH (08:12)
[2018-09-13] MEDS: Senna/Docusate Sodium 8.6/50 MG Tablet PO SCH (08:13)
[2018-09-13] MEDS: Insulin NovoLOG Aspart Correctional Sugar Inj SQ SCH ×2 (09:28→17:05)
[2018-09-13] MEDS: Insulin Detemir Inj 1,000 UNIT/10 ML Vial SQ SCH (09:28)
--- NOTE | 2018-09-13 11:48 | P.DSPSY ---
Psychiatry Discharge Summary Inpatient Psychiatric care?: Yes Advance Directives: No Mental Health Advance Directive: No Health Care Proxy: No - Admission Admission Date: September 07, 2018 19:55 Brief History: 08/29/2018 This is a request for a psychiatric consult. Documentation was reviewed, case was discussed with nursing and patient was evaluated. Patient is a 73-year-old female with a history of depressive disorder. She is here after an intentional suicide overdose. Patient admits to her suicide attempt and describes various stressors including not having a home and feeling like she is a financial burden. She has been feeling this way over the past 4 months and decided to plan her attempt before admission. She wrote a note but says that the note was found to soon by her daughter. Patient continues to have suicidal ideation with intent of hurting herself but does not have any plan of doing so. I spoke with the one-to-one she remains closely monitored here. Her mood is depressed her affect is blunted. She is feeling hopeless and helpless. No psychosis elicited. Patient overdosed however per record she had access to a gun.She states that around 6:54 PM on 08/28 she ingested about 20 tablets of Tylenol 650 mg (13 gram) as well as about 3 doses of codeine cough syrup. She injected "about 3 to 4 times her standard dose" of Tresiba ( time to peak 9 hours, half life elimination 25 hours). Tylenol level at 3-4 hours was 207. She was started on Mucomyst in the emergency department. Her glucose is 341. Urine drug screen is positive for opioids. Salicylate and serum EtOH are negative. She states she still feels suicidal. Past psych: Patient denies outpatient psychiatric history. Says that she had 1 other overdose in her life at age 18. He describes a history of multiple depressive episodes and has tried various antidepressants with little efficacy. The last one that she remembers is Lexapro but she does not know when she took it. No history of cutting. Past medical: CHF, COPD, diabetes mellitus, GERD Past Famhx: Denies Past Social: Patient has 3 kids and is . 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 She denies alcohol or drug use. 09/03/2028 Family medicine notes noted and attending nurse and I discussed the discharge planning. I have asked that the attending physician call me for conferencing the patient prior to making any further decisions regarding the psychiatric follow-up. If patient is to be admitted to hospice I believe she would be safe from further suicidal attempts. Her presentation of her suicidal preoccupation has now changed to her stating that she does not have a gun and she has never told anyone she did. There is very clear indication on repeated notes that the patient has indicated she has gone. This seems to be a manifestation of the patient's being angry with her world and unhappy with the circumstances she finds herself and now where she feels that she is useless now that her friend is no longer alive.There is every indication that the patient is angry and that this is based on circumstances rather than actual clinical depression. 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 There is no likely of inpatient psychiatric follow-up being least restrictive or even the most effective means for treatment. It is therefore recommended that the patient a transfer to hospice as has been planned. Once this has been arranged consult for lifting the [place] act will be done.If the patient is still in the hospital on Thursday Dr. Levin will see the patient and give his opinion as to the best disposition, if he does not concur with the plan as it is now recommended. 09/07/2017 Patient seen today for psychiatric reevaluation. Notes from Dr. Snell and Dr. Gomez reviewed. Patient is found calm, superficially cooperative, very sarcastic. Patient reports that she is not happy with failing her plan. She says that she just need more time to figure out how to commit suicide with a better metabolic. Patient says that she has no recent to live for. She reports to be very pessimistic, very hopeless, helpless, and having continued suicidal thinking. The patient is logical, she is coherent, she is relevant. She is fully oriented x3. I spoke with her about starting medication for depression, she agrees with it. Tobacco Use In Past 30 Days: Yes How Often Do You Have a Drink Containing Alcohol: Monthly or less Hospital Course: September 13, 2018 Course in the hospital: Patient initially seen on the cardiac service where patient was refusing additional studies. It was deemed that the patient was capable of making this decision as well sign a DNR. Patient nevertheless was reluctant to go home because she claimed to be suicidal. Patient was transferred to psychiatry for she showed no evidence of a thought process or significant mood disorder. Rather her condition seemed to be more wanted of situational depression associated with her loss of feelings of relevance. Patient did well on the psych unit with improvement over the past few days to the point where she no longer endorses the idea of suicide. She almost proudly announced today that she was ready to go because she did not feel that she wanted to hurt herself anymore. - Discharge Discharge Date: 09/13/18 Discharge Disposition: Assisted Living Facility - Discharge Instructions Discharge Diet: Diabetic Diet Activities You Can Perform: Weight Bearing As Tolerat - Discharge Time > 30 minutes Mental Status Examination Appearance: Appropriate (No changes in the patient's behavior. She shows no signs of clinical depression) Consciousness: Alert Orientation: x4 Motor Activity: Normal gait Speech: Unremarkable Language: Adequate Fund of Knowledge: Adequate Attention and Concentration: Adequate Memory: Unremarkable Mood: Appropriate Affect: Appropriate Thought Process & Associations: Intact Thought Content: Appropriate Hallucination Type: None Suicidal Ideation: No (Denies but cannot contract and is a poor historian) Suicidal Plan: No Suicidal Intention: No Homicidal Ideation: No Homicidal Plan: No Homicidal Intention: No Insight: Adequate Judgment: Adequate Discharge/Advance Care Plan - Results Vital Signs: Last Vital Signs Temp 98.6 F 09/13/18 06:00 Pulse 65 09/13/18 06:00 Resp 18 09/13/18 06:00 BP 125/57 L 09/13/18 06:00 Pulse Ox 95 09/13/18 06:00 Lab Results: Abnormal Lab Results 09/12/18 09/13/18 09/13/18 19:30 06:31 11:24 POC Glucose 228 H 210 H 199 H Summary of Procedures: None Pending Results: None - Medications Number of antipsychotic medications at discharge: 0 - Discharge Care Plan Goals to Promote Your Health: * To prevent worsening of your condition and complications * To maintain your health at the optimal level Directions to Meet Your Goals: Take your medications as prescribed Follow your dietary instruction Follow activity as directed Keep your appointments as scheduled Take your immunizations and boosters as scheduled If your symptoms worsen call your PCP, if no PCP go to Urgent Care Center or Emergency Room For 30/03 questions related to your inpatient stay or results of tests pending at discharge, please contact Dr. Kodi Obrien MD at Smoking is Dangerous to Your Health. Avoid second hand smoking
[2018-09-13 16:55] VITALS: BP 130/60; PULSE 70; TEMP 98.7; O2SAT 97
== END 2018-09-13 17:45 | disposition home or self-care (01) | DRG 885 ==
LOC: H250 19:55
PROVIDERS: ADMIT Psychiatry & Neurology Child & Adolescent Psychiatry; ATTEND Psychiatry & Neurology Child & Adolescent Psychiatry
CPT/HCPCS: 80053; 82948; 82962; 85025; J1815